=== PATIENT | male | born 1940 ===

== ENCOUNTER 2021-08-12 14:40 | Inpatient (IN) ==
[2021-08-12] MEDS: methylPREDNISolone SOD 40 mg/ml 1 ml VIAL IV SCH (21:00)
[2021-08-12] MEDS: Heparin 5000 UNITS/ML 1 mL VIAL SUBCUT SCH (21:00)
[2021-08-12] MEDS: cefTRIAXone 1 gm/50 mL NS BAG 1 GM/50 ML BAG IVPB SCH (21:00)
[2021-08-12] MEDS: Azithromycin 500 mg/250 ml NS 500 MG/250 ML BAG IVPB SCH (21:45)
[2021-08-13] MEDS: methylPREDNISolone SOD 40 mg/ml 1 ml VIAL IV SCH ×3 (03:47→20:21)
[2021-08-13 04:24] LABS: ABS Lymphocytes 0.4 10^3/ul (1.0-4.8); ABS Monocytes 0.9 10^3/ul (0-0.8); ABS Neutrophils 11.3 10^3/ul (1.5-7.7); Hematocrit 37 % (42-52); Lymphocyte % 2.9 %; Mean Corpuscular HGB Conc 33 g/dL (31-36); Mean Corpuscular Hemoglobin 33 pg (27-31); Mean Corpuscular Volume 100 fL (80-94); Mean Platelet Volume 8.4 fL (7.4-10.4); Platelet Count 245 10^3/uL (150-450); Red Blood Count 3.68 10^6 /uL (4.18-5.48); Red Cell Distribution Width 14 % (10-15); White Blood Count 12.6 10^3/uL (3.5-10.8)
[2021-08-13 04:28] LABS: INR 1.03 (0.86-1.15)
[2021-08-13 04:39] LABS: ALT 22 U/L (7-52); AST 20 U/L (13-39); Albumin/Globulin Ratio 1.7 (1-3); Alkaline Phosphatase 67 U/L (35-149); Blood Urea Nitrogen 26 mg/dL (6-24); Chloride 92 mmol/L (101-111); Globulin 2.4 g/dL (2-4); Glucose 165 mg/dL (70-100); Magnesium 2.1 mg/dL (1.9-2.7); Phosphorus 2.9 mg/dL (2.5-5.0); Potassium 4.3 mmol/L (3.5-5.0); Sodium 144 mmol/L (135-145); Total Protein 6.4 g/dL (6.4-8.9); eGFR CKD-EPI 93.9 (>60)
[2021-08-13 04:57] LABS: CO2 Carbon Dioxide 48 mmol/L (22-32)
[2021-08-13 05:40] LABS: PO2 Arterial 75 mmHg (80-100)
[2021-08-13 05:51] LABS: PCO2 Arterial 78 mmHg (35-45)
[2021-08-13 06:27] LABS: TSH Ultra Thyroid Stim Horm 0.26 mcIU/mL (0.34-5.60)
[2021-08-13] MEDS: Heparin 5000 UNITS/ML 1 mL VIAL SUBCUT SCH ×2 (09:35→20:21)
[2021-08-13] MEDS ORDERED: diPHENhydraMINE 25 mg TAB PO PRN (15:55)
[2021-08-13 16:24] LABS: Free T3 2.2 pg/mL (2.5-3.9)
[2021-08-13 16:25] LABS: Free T4 0.91 ng/dL (0.61-1.12)
[2021-08-13 16:26] LABS: Troponin I 0.13 ng/mL (<0.03)
[2021-08-13 16:49] LABS: Ferritin 296.1 ng/mL (24-336)
[2021-08-13 17:49] LABS: Cholesterol 147 mg/dL; LDL Cholesterol 87 mg/dL; Triglycerides 75 mg/dL
[2021-08-13] MEDS: cefTRIAXone 1 gm/50 mL NS BAG 1 GM/50 ML BAG IVPB SCH (20:28)
[2021-08-13] MEDS ORDERED: Iodixanol (CONTRAST) 320 MG/ML 100 ML SDV IV ONE (22:19)
[2021-08-13] MEDS: Azithromycin 500 mg/250 ml NS 500 MG/250 ML BAG IVPB SCH (22:21)
[2021-08-13] MEDS: Enoxaparin 60 MG/0.6 ML SYR SUBCUT SCH (23:43)
[2021-08-14] MEDS: methylPREDNISolone SOD 40 mg/ml 1 ml VIAL IV SCH ×3 (05:02→20:49)
[2021-08-14 05:32] LABS: Hematocrit 42 % (42-52); Hemoglobin 13.7 g/dL (14.0-18.0); Mean Corpuscular HGB Conc 33 g/dL (31-36); Mean Corpuscular Hemoglobin 33 pg (27-31); Mean Corpuscular Volume 101 fL (80-94); Mean Platelet Volume 8.7 fL (7.4-10.4); Platelet Count 245 10^3/uL (150-450); Red Blood Count 4.15 10^6 /uL (4.18-5.48); Red Cell Distribution Width 14 % (10-15)
[2021-08-14 05:38] LABS: INR 1.1 (0.86-1.15)
[2021-08-14 05:47] LABS: Calcium 9.2 mg/dL (8.6-10.3); Magnesium 2.3 mg/dL (1.9-2.7); Phosphorus 4.4 mg/dL (2.5-5.0); Potassium 4.9 mmol/L (3.5-5.0); eGFR CKD-EPI 94.3 (>60)
[2021-08-14] MEDS: Aspirin EC 81 mg TAB.EC (enteric coated) PO SCH (09:46)
[2021-08-14] MEDS ORDERED: Albuterol HFA INHALER 8 gm MDI INH PRN (11:46)
[2021-08-14] MEDS: Enoxaparin 60 MG/0.6 ML SYR SUBCUT SCH ×2 (12:11→22:25)
[2021-08-14 14:32] LABS: Troponin I 0.08 ng/mL (<0.03)
[2021-08-14] MEDS: cefTRIAXone 1 gm/50 mL NS BAG 1 GM/50 ML BAG IVPB SCH (20:49)
[2021-08-14] MEDS: Azithromycin 500 mg/250 ml NS 500 MG/250 ML BAG IVPB SCH (22:25)
[2021-08-15] MEDS: methylPREDNISolone SOD 40 mg/ml 1 ml VIAL IV SCH (04:45)
[2021-08-15 05:41] LABS: ABS Lymphocytes 0.4 10^3/ul (1.0-4.8); ABS Monocytes 0.7 10^3/ul (0-0.8); ABS Neutrophils 9.2 10^3/ul (1.5-7.7); Hematocrit 41 % (42-52); Hemoglobin 13.3 g/dL (14.0-18.0); Lymphocyte % 3.7 %; Mean Corpuscular HGB Conc 32 g/dL (31-36); Mean Corpuscular Hemoglobin 33 pg (27-31); Mean Corpuscular Volume 102 fL (80-94); Mean Platelet Volume 8.7 fL (7.4-10.4); Platelet Count 274 10^3/uL (150-450); Red Blood Count 4.05 10^6 /uL (4.18-5.48); Red Cell Distribution Width 14 % (10-15); White Blood Count 10.2 10^3/uL (3.5-10.8)
[2021-08-15 06:13] LABS: Blood Urea Nitrogen 40 mg/dL (6-24); Calcium 9.2 mg/dL (8.6-10.3); Chloride 95 mmol/L (101-111); Glucose 146 mg/dL (70-100); Magnesium 2.4 mg/dL (1.9-2.7); eGFR CKD-EPI 89.9 (>60)
[2021-08-15 06:15] LABS: Potassium 5.4 mmol/L (3.5-5.0); Sodium 148 mmol/L (135-145)
[2021-08-15 06:30] LABS: CO2 Carbon Dioxide 50 mmol/L (22-32)
[2021-08-15] MEDS ORDERED: D5W 1/2 NS 1000 ml BAG 1,000 ML IV SCH (08:00)
[2021-08-15 09:11] LABS: PO2 Arterial 109 mmHg (80-100)
[2021-08-15 09:22] LABS: PCO2 Arterial > 121 mmHg (35-45)
[2021-08-15 09:51] LABS: Blood Urea Nitrogen 44 mg/dL (6-24); Calcium 9.2 mg/dL (8.6-10.3); Chloride 95 mmol/L (101-111); Glucose 175 mg/dL (70-100); eGFR CKD-EPI 88.3 (>60)
[2021-08-15 09:54] LABS: Potassium 5.3 mmol/L (3.5-5.0); Sodium 149 mmol/L (135-145)
[2021-08-15 10:15] LABS: CO2 Carbon Dioxide 49 mmol/L (22-32)
[2021-08-15 10:33] LABS: PO2 Arterial 90 mmHg (80-100)
[2021-08-15 10:37] LABS: PCO2 Arterial 120 mmHg (35-45)
[2021-08-15] MEDS: Aspirin EC 81 mg TAB.EC (enteric coated) PO SCH (11:43)
[2021-08-15] MEDS: Enoxaparin 60 MG/0.6 ML SYR SUBCUT SCH ×2 (13:19→21:57)
[2021-08-15] MEDS ORDERED: Lorazepam PYXIS KEY PRN (20:00)
[2021-08-15] MEDS ORDERED: LORazepam 2 mg VIAL 1 ml IV PUSH PRN (20:00)
[2021-08-15] MEDS: cefTRIAXone 1 gm/50 mL NS BAG 1 GM/50 ML BAG IVPB SCH (21:51)
[2021-08-15] MEDS: Azithromycin 500 mg/250 ml NS 500 MG/250 ML BAG IVPB SCH (21:53)
[2021-08-16] MEDS ORDERED: NS 0.9% 1000 ml BAG 1,000 ML IV SCH (06:00)
[2021-08-16 08:14] LABS: PO2 Arterial 101 mmHg (80-100)
[2021-08-16 08:22] LABS: PCO2 Arterial > 121 mmHg (35-45)
[2021-08-16] MEDS: Aspirin EC 81 mg TAB.EC (enteric coated) PO SCH (09:27)
[2021-08-16 10:47] LABS: % Iron Saturation 34 % (14 - 50); Total Iron Binding Capacity 224 mcg/dL (250 - 400)
[2021-08-16] MEDS: Enoxaparin 60 MG/0.6 ML SYR SUBCUT SCH (12:30)
[2021-08-16] MEDS ORDERED: Albuterol/Ipratropium NEB.SOL (2.5/0.5 MG) 3 ML NEB.SOLN INH SCH (16:20)
[2021-08-16] MEDS ORDERED: Piperacillin/Tazobac ADVAN 3.375 GM in NS 0.9% 100 ml BAG 100 ML IV ONE (16:20)
[2021-08-16] MEDS ORDERED: methylPREDNISolone SOD 40 mg/ml 1 ml VIAL IV SCH (17:00)
[2021-08-16] MEDS ORDERED: Zosyn per Pharmacy NOTE FOLLOW UP SCH (17:00)
[2021-08-16] MEDS ORDERED: Lorazepam PYXIS KEY PRN (17:03)
[2021-08-16] MEDS ORDERED: LORazepam 2 mg VIAL 1 ml IV PUSH ONE (17:03)
[2021-08-16] MEDS ORDERED: ZOSYN 3.375 GM Q8H per EXTENDED INFUSION IV SCH (20:30)
[2021-08-16 21:02] VITALS: BP 90/50
[2021-08-17] MEDS ORDERED: Morphine ORAL CONCENTRATE 5 MG/0.25 ML ORAL.SYRIN SL PRN (10:33)
== END 2021-08-17 12:55 | disposition expired | DRG 175 ==
LOC: ICU 18:12 → SUATTDRO 18:12 → MEDTELE 08-14 20:34 → ICU 08-15 10:35 → MED 08-16 21:14
PROVIDERS: ADMIT Internal Medicine; ATTEND Internal Medicine Critical Care Medicine